=== PATIENT | male | born 1980 | race Caucasian/White ===

== ENCOUNTER 2017-04-14 11:30 | Emergency (ER) | payer OTHER ==
[~2017-04-14] VITALS: Ht 180.3 cm; Wt 117.9 kg
[2017-04-14 11:37] VITALS: BP 124/87
[2017-04-14] MEDS ORDERED: LIDOCAINE/EPI/TETRACAINE TOPICAL GEL 3 ML. TP ONE ×2 (11:38→11:45)
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
[2017-04-14] MEDS ORDERED: DIPHTH,PERTUSS(ACELL),TET TOX 0.5 ML DISP.SYRIN. VAX IM ONE (11:45)
[2017-04-14] MEDS ORDERED: ACETAMINOPHEN 500 MG TABLET PO ONE (12:00)
== END 2017-04-14 11:55 | disposition home or self-care (01) ==
LOC: EEVIPCON 11:30 → ER 11:30
DX: S01.01XA Laceration without foreign body of scalp, initial encounter (principal); W22.8XXA Striking against or struck by other objects, initial encounter; Y93.89 Activity, other specified; Y92.89 Other specified places as the place of occurrence of the external cause; Y99.8 Other external cause status
CPT/HCPCS: 12002; 90471; 90715; 99283-25

== ENCOUNTER 2021-06-08 18:15 | Emergency (ER) | payer OTHER ==
[~2021-06-08] VITALS: Ht 182.9 cm; Wt 114.5 kg
[2021-06-08 19:10] VITALS: BP 135/77
[2021-06-08] MEDS ORDERED: DEXAMETHASONE 4 MG TABLET PO ONE (19:30)
[2021-06-08] MEDS ORDERED: EPIPEN0.3 MG/0.3 IM (19:43)
[2021-06-08] MEDS ORDERED: FAMO40TA4 PO (19:43)
[2021-06-08] MEDS ORDERED: DIPH25TA24 PO (19:43)
[2021-06-08] MEDS ORDERED: PRED50TA PO (19:43)
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
== END 2021-06-08 20:02 | disposition home or self-care (01) ==
LOC: EEVIPCON 18:15 → ER 18:15
DX: T78.40XA Allergy, unspecified, initial encounter (principal)
CPT/HCPCS: 99283